=== PATIENT | male | born 1945 | race Caucasian/White ===

== ENCOUNTER 2016-06-09 02:10 | Inpatient (IN) | payer MEDICARE, OTHER ==
[~2016-06-09] VITALS: Ht 172.7 cm; Wt 61.3 kg
[~2016-06-09 02:10] MED LIST: ASPI-496 PO; ATOR10TA PO; CLOP75TA22 PO; METO25TA4 PO; TICA90TA PO
[2016-06-09] MEDS ORDERED: POLYETHYLENE GLYCOL 17 GM PACKET PO PRN (04:00)
[2016-06-09] MEDS ORDERED: TEMAZEPAM 15 MG CAPSULE PO PRN (04:00)
[2016-06-09] MEDS ORDERED: ONDANSETRON 2MG/ML, 2ML IVP PRN (04:00)
[2016-06-09] MEDS ORDERED: ACETAMINOPHEN 325 MG TABLET PO PRN (04:00)
[2016-06-09] MEDS ORDERED: ENALAPRILAT 1.25 MG/ML, 2ML IVPush PRN (04:00)
[2016-06-09] MEDS ORDERED: DOCUSATE 100 MG CAPSULE PO PRN (04:00)
[2016-06-09] MEDS ORDERED: BISACODYL 10 MG SUPP PR PRN (04:00)
[2016-06-09] MEDS ORDERED: GUAIFENESIN/DM 200-20MG, 10ML UDC PO PRN (04:00)
[2016-06-09] MEDS ORDERED: ENOXAPARIN 40 MG/0.4 ML ONE (04:24)
[2016-06-09] MEDS ORDERED: NICOTINE 21 MG/24 HR PATCH.TD24 ONE (04:24)
[2016-06-09] MEDS ORDERED: methylPREDNISolone SOD SUCC 125 MG/2 ML ONE ×2 (04:24→10:34)
[2016-06-09] MEDS: DOXYCYCLINE 100 MG in DEXTROSE 5% 250 ML IV SCH ×2 (04:39→16:47)
[2016-06-09] MEDS: methylPREDNISolone SOD SUCC 125 MG/2 ML IVPush SCH ×4 (04:39→22:19)
[2016-06-09] MEDS: NICOTINE 21 MG/24 HR PATCH.TD24 TD SCH (04:40)
[2016-06-09] MEDS: ENOXAPARIN 40 MG/0.4 ML SQ SCH (04:40)
[2016-06-09] MEDS: FLUTICASONE/VILANTEROL 200-25MCG/INH INH SCH (10:31)
[2016-06-09] MEDS: LOSARTAN 50MG TABLET PO SCH (10:31)
[2016-06-09] MEDS: METOPROLOL TARTRATE 25 MG TABLET PO SCH ×2 (10:31→20:17)
[2016-06-09] MEDS ORDERED: MAGNESIUM SULFATE PMX 2GM/50ML 50 ML IV ONE (12:00)
[2016-06-09 12:08] LABS: HEMOGLOBIN 14.1 g/dL (13.7-18.0)
[2016-06-09 12:18] LABS: BLOOD UREA NITROGEN 15 mg/dL (7-18)
[2016-06-09 15:40] VITALS: BP 127/69
[2016-06-09] MEDS ORDERED: ALBUTEROL/IPRATROPIUM 2.5MG/0.5MG, 3 ML NPPB PRN (17:30)
[2016-06-09 18:59] VITALS: BP 121/64
[2016-06-09] MEDS: ATORVASTATIN 10 MG TABLET PO SCH (20:16)
[2016-06-10 01:42] VITALS: BP 123/66
[2016-06-10] MEDS: NICOTINE 21 MG/24 HR PATCH.TD24 TD SCH (04:14)
[2016-06-10] MEDS: ENOXAPARIN 40 MG/0.4 ML SQ SCH (04:14)
[2016-06-10] MEDS: DOXYCYCLINE 100 MG in DEXTROSE 5% 250 ML IV SCH ×2 (04:14→16:55)
[2016-06-10] MEDS: methylPREDNISolone SOD SUCC 125 MG/2 ML IVPush SCH ×3 (04:14→20:48)
[2016-06-10 05:47] LABS: HEMOGLOBIN 13.2 g/dL (13.7-18.0)
[2016-06-10 05:59] LABS: BLOOD UREA NITROGEN 17 mg/dL (7-18)
[2016-06-10 07:17] VITALS: BP 139/73
[2016-06-10] MEDS: FLUTICASONE/VILANTEROL 200-25MCG/INH INH SCH (08:23)
[2016-06-10] MEDS: LOSARTAN 50MG TABLET PO SCH (08:23)
[2016-06-10] MEDS: METOPROLOL TARTRATE 25 MG TABLET PO SCH ×2 (08:26→20:49)
[2016-06-10 13:42] VITALS: BP 142/77
[2016-06-10] MEDS ORDERED: SODIUM CHLORIDE NASAL SPRAY 45ML BOTTLE NAS PRN (17:30)
[2016-06-10 18:57] VITALS: BP 153/75
[2016-06-10] MEDS: ATORVASTATIN 10 MG TABLET PO SCH (20:48)
[2016-06-11 01:58] VITALS: BP 129/73
[2016-06-11] MEDS: ENOXAPARIN 40 MG/0.4 ML SQ SCH (03:59)
[2016-06-11] MEDS: NICOTINE 21 MG/24 HR PATCH.TD24 TD SCH (03:59)
[2016-06-11] MEDS: DOXYCYCLINE 100 MG in DEXTROSE 5% 250 ML IV SCH (03:59)
[2016-06-11 05:23] LABS: HEMOGLOBIN 13.4 g/dL (13.7-18.0)
[2016-06-11 06:55] VITALS: BP 142/76
[2016-06-11] MEDS: METOPROLOL TARTRATE 25 MG TABLET PO SCH (08:45)
[2016-06-11] MEDS: LOSARTAN 50MG TABLET PO SCH (08:45)
[2016-06-11] MEDS: methylPREDNISolone SOD SUCC 125 MG/2 ML IVPush SCH (08:45)
[2016-06-11] MEDS: FLUTICASONE/VILANTEROL 200-25MCG/INH INH SCH (08:45)
[2016-06-11] MEDS ORDERED: FLUT1BLS INH (10:31)
[2016-06-11] MEDS ORDERED: SODI44SP NAS (10:31)
[2016-06-11] MEDS ORDERED: PRED20TA PO (10:31)
[2016-06-11] MEDS ORDERED: GUAI5SYR PO (10:31)
[2016-06-11] MEDS ORDERED: LOSA50TA2 PO (10:31)
[2016-06-11] MEDS ORDERED: NICO1PAT5 TD (10:31)
[2016-06-11] MEDS ORDERED: CEFD300C2 PO (10:45)
[2016-06-11] MEDS ORDERED: DOXYCYCLINE 100MG TABLET PO SCH (21:00)
[2016-06-11] MEDS ORDERED: CEFDINIR 300 MG CAPSULE PO SCH (21:00)
== END 2016-06-11 12:59 | disposition home or self-care (01) | DRG 189 ==
LOC: ED 02:38 → EDIP 02:38 → 4EST 15:19 → DCLOUNGE 06-11 12:02
DX: J96.01 Acute respiratory failure with hypoxia (principal); J44.1 Chronic obstructive pulmonary disease with (acute) exacerbation; I50.42 Chronic combined systolic (congestive) and diastolic (congestive) heart failure; A49.9 Bacterial infection, unspecified; I11.0 Hypertensive heart disease with heart failure; R59.0 Localized enlarged lymph nodes; I25.10 Atherosclerotic heart disease of native coronary artery without angina pectoris; E78.5 Hyperlipidemia, unspecified; I25.5 Ischemic cardiomyopathy; I73.9 Peripheral vascular disease, unspecified; F17.200 Nicotine dependence, unspecified, uncomplicated; I25.2 Old myocardial infarction; Z95.5 Presence of coronary angioplasty implant and graft; Z79.02 Long term (current) use of antithrombotics/antiplatelets
CPT/HCPCS: 36415; 80048; 83735; 84100; 84439; 84443; 84481; 85025; 85610; 87070; 87205; 93005; 93306; 96365; 96372; 96375; 96376; J1650; J7060; J2930; J3475

== ENCOUNTER → 2016-08-05 | Outpatient (CLI) | payer MEDICARE, OTHER ==
[~2016-08-05] MED LIST changes: +CEFD300C37 PO; +CLOP75TA PO; +FLUT16SP NS; +FLUT1BLS INH; +GUAI5SYR PO; +LOSA50TA2 PO; +LOSA50TA6 PO; +METO25TA91 PO; +MULT-717 PO; +NICO1PAT5 TD; +PRED20TA PO; +SODI44SP NAS
[2016-08-05 12:14] LABS: ASPARTATE AMINO TRANSFERASE 13 U/L (15-37); BLOOD UREA NITROGEN 13 mg/dL (7-18)
== END | disposition home or self-care (01) ==
LOC: STAR 10:52
PROVIDERS: ATTEND Internal Medicine Critical Care Medicine
DX: Z01.810 Encounter for preprocedural cardiovascular examination (principal); R91.8 Other nonspecific abnormal finding of lung field
CPT/HCPCS: 36415; 80053; 93005

== ENCOUNTER 2016-08-11 06:23 | Day surgery (SDC) | payer MEDICARE, OTHER ==
[2016-08-05 11:20] VITALS: BP 154/83
[~2016-08-11] VITALS: Ht 172.7 cm; Wt 57.5 kg
[2016-08-11] MEDS ORDERED: METO25TA91 PO (07:24)
[2016-08-11] MEDS ORDERED: LACTATED RINGERS 1,000 ML IV SCH (07:26)
[2016-08-11] MEDS ORDERED: LIDOCAINE 1%, 2ML SQ PRN (07:30)
[2016-08-11] MEDS ORDERED: FENTANYL PF 100 MCG/2ML ONE (09:43)
[2016-08-11] MEDS ORDERED: SUCCINYLCHOLINE 20 MG/ML, 10ML ONE (09:46)
[2016-08-11] MEDS ORDERED: ONDANSETRON 2MG/ML, 2ML ONE (09:46)
[2016-08-11] MEDS ORDERED: PHENYLEPHRINE 10 MG/ML ONE (09:46)
[2016-08-11] MEDS ORDERED: PROPOFOL 10 MG/ML, 20ML ONE (09:46)
[2016-08-11] MEDS ORDERED: DEXAMETHASONE 4 MG/ML, 1ML ONE (09:46)
[2016-08-11] MEDS ORDERED: ROCURONIUM 10 MG/ML ONE (09:46)
[2016-08-11] MEDS ORDERED: hydrALAzine 20 MG/ML, 1ML IV PRN (10:30)
[2016-08-11] MEDS ORDERED: PROMETHAZINE 25 MG/ML, 1ML IV PRN (10:30)
[2016-08-11] MEDS ORDERED: MEPERIDINE/PF 25MG/0.5ML IVPush PRN (10:30)
[2016-08-11] MEDS ORDERED: LABETALOL 5MG/ML, 20ML IV PRN (10:30)
[2016-08-11] MEDS ORDERED: MIDAZOLAM 1 MG/ML, 2ML IV PRN (10:30)
[2016-08-11] MEDS ORDERED: ALBUTEROL SULFATE 2.5 MG/3 ML NPPB PRN (10:30)
[2016-08-11] MEDS ORDERED: FENTANYL PF 100 MCG/2ML IV PRN (10:30)
[2016-08-11] MEDS ORDERED: OXYcodone 5 MG/5 ML ORAL.SOL UDC PO PRN (10:30)
[2016-08-11] MEDS ORDERED: ONDANSETRON 2MG/ML, 2ML IVPush PRN (10:30)
[2016-08-11] MEDS ORDERED: HYDROmorphone 1 MG/ML, 1ML IV PRN (10:30)
== END 2016-08-11 12:45 | disposition home or self-care (01) ==
LOC: OUT 06:23
PROVIDERS: ATTEND Internal Medicine Critical Care Medicine
DX: R91.8 Other nonspecific abnormal finding of lung field (principal); R59.0 Localized enlarged lymph nodes
CPT/HCPCS: 31623; 31624; 31628; 31652; 71260; 88104; 88112; 88172; 88173; 88177; 88304; 88305; 94640; J0330; J1100; J2370; J2405; J2704; J3010; J3490; J7120; Q9967; 31625; 31629; J7613

== ENCOUNTER 2016-09-01 05:54 | Day surgery (SDC) | payer MEDICARE, OTHER ==
[2016-08-24 13:10] VITALS: BP 164/81
[~2016-09-01] VITALS: Ht 172.7 cm; Wt 58.5 kg
[2016-09-01] MEDS ORDERED: LACTATED RINGERS 1,000 ML IV SCH (06:37)
[2016-09-01] MEDS ORDERED: LIDOCAINE 1%, 2ML SQ PRN (07:00)
[2016-09-01] MEDS ORDERED: DEXAMETHASONE 4 MG/ML, 1ML ONE (07:45)
[2016-09-01] MEDS ORDERED: SUCCINYLCHOLINE 20 MG/ML, 10ML ONE (07:45)
[2016-09-01] MEDS ORDERED: EPHEDRINE 50 MG/ML, 1ML ONE (07:45)
[2016-09-01] MEDS ORDERED: METOCLOPRAMIDE 5 MG/ML, 2ML ONE (07:45)
[2016-09-01] MEDS ORDERED: PROPOFOL 10 MG/ML, 20ML ONE (07:45)
[2016-09-01] MEDS ORDERED: ONDANSETRON 2MG/ML, 2ML ONE (07:45)
[2016-09-01] MEDS ORDERED: EPINEPHRINE SYRINGE 0.1 MG/ML, 10ML ONE (08:00)
[2016-09-01] MEDS ORDERED: OXYcodone 5 MG/5 ML ORAL.SOL UDC PO PRN (09:30)
[2016-09-01] MEDS ORDERED: LABETALOL 5MG/ML, 20ML IV PRN (09:30)
[2016-09-01] MEDS ORDERED: HYDROmorphone 1 MG/ML, 1ML IV PRN (09:30)
[2016-09-01] MEDS ORDERED: ONDANSETRON 2MG/ML, 2ML IVPush PRN (09:30)
[2016-09-01] MEDS ORDERED: ACETAMINOPHEN 325 MG TABLET PO PRN (09:30)
[2016-09-01] MEDS ORDERED: FENTANYL PF 100 MCG/2ML IV PRN (09:30)
== END 2016-09-01 13:30 | disposition home or self-care (01) ==
LOC: OUT 05:54
PROVIDERS: ATTEND Internal Medicine Critical Care Medicine
DX: C34.11 Malignant neoplasm of upper lobe, right bronchus or lung (principal); F17.200 Nicotine dependence, unspecified, uncomplicated; Z79.82 Long term (current) use of aspirin; Z72.89 Other problems related to lifestyle
CPT/HCPCS: 31623; 31624; 31627; 71010; 88104; 88112; 88172; 88173; 88177; 88305; 88341; 88342; J0330; J1100; J2250; J2405; J2704; J2765; J3010; 31628; 31629; G0461

== ENCOUNTER → 2016-12-01 | Outpatient (CLI) | payer MEDICARE, OTHER ==
[~2016-12-01] MED LIST changes: -CLOP75TA22 PO; +CLOP75TA52 PO; +NICO-487 TD; -NICO1PAT5 TD; +OMNIPAQUE 350 MG/ML, 100ML BOTTLE ONE
== END | disposition home or self-care (01) ==
LOC: CFH 11:44
PROVIDERS: ATTEND Internal Medicine Hematology & Oncology
DX: C34.90 Malignant neoplasm of unspecified part of unspecified bronchus or lung (principal); R59.1 Generalized enlarged lymph nodes; R91.8 Other nonspecific abnormal finding of lung field; J43.2 Centrilobular emphysema; N28.1 Cyst of kidney, acquired; M47.9 Spondylosis, unspecified; N43.3 Hydrocele, unspecified; N32.89 Other specified disorders of bladder
CPT/HCPCS: 71260; 74177; 82565; Q9967

== ENCOUNTER → 2016-12-02 | Outpatient (CLI) | payer MEDICARE, OTHER ==
[~2016-12-02] MED LIST changes: +LIDOCAINE 1%, 20ML ONE; -OMNIPAQUE 350 MG/ML, 100ML BOTTLE ONE
== END | disposition home or self-care (01) ==
LOC: RAD 08:37
PROVIDERS: ATTEND Internal Medicine Hematology & Oncology
DX: C34.91 Malignant neoplasm of unspecified part of right bronchus or lung (principal)
CPT/HCPCS: 76942; 88305; 88341; 88342; J3490; G0461